=== PATIENT | male | born 1975 | race Caucasian/White ===

== ENCOUNTER 2016-10-08 21:22 | Emergency (ER) | payer SELFPAY ==
[~2016-10-08] VITALS: Ht 172.7 cm; Wt 75.0 kg
[~2016-10-08 21:22] MED LIST: DILA4TAB10 PO; METR-1 PO; OXYC5 PO; PROM25TA5 PO
[2016-10-08 21:24] VITALS: BP 118/71; PULSE 63; RESP 16; TEMP 98.3; O2SAT 99
--- NOTE | 2016-10-08 22:47 | PD ---
Physical Exam Time Seen by Provider: 22:45 Narrative 41 y/o male here with right-sided abdominal pain, nausea and vomiting over the past few days. Vital signs reviewed. Seen at triage desk. Awaiting bed placement. Data Data Last Documented VS Vital Signs Date Time Temp Pulse Resp B/P Pulse Ox O2 Delivery O2 Flow Rate FiO2 10/08/16 21:24 98.3 63 16 118/71 99 Room Air [facility] Medical Record Reviewed: Yes Supervised Visit with HUDSON: Bonifacio Salas Oct 08, 2016 22:47
[2016-10-08 23:12] LABS: AUTOMATED NEUTROPHIL # 5.7 TH/MM3 (1.8-7.7); BASOPHIL # 0.1 TH/MM3 (0-0.2); BASOPHIL % 0.6 % (0.0-2.0); EOSINOPHIL # 0.3 TH/MM3 (0-0.4); EOSINOPHIL % 3.6 % (0.0-4.0); HEMATOCRIT 41.5 % (39.0-51.0); HEMO FLAGS DIFF FINAL; LYMPH % 24.3 % (9.0-44.0); LYMPHOCYTE # 2.2 TH/MM3 (1.0-4.8); MEAN CORPUSCULAR HEMOGLOBIN 29.9 PG (27.0-34.0); MEAN CORPUSCULAR HGB CONC 33.6 % (32.0-36.0); MONO % 8.6 % (0.0-8.0); NEUT % 62.9 % (16.0-70.0); PLATELET COUNT 180 TH/MM3 (150-450); RED BLOOD COUNT 4.67 MIL/MM3 (4.50-5.90); RED CELL DISTRIBUTION WIDTH 13.1 % (11.6-17.2); WHITE BLOOD COUNT 9.1 TH/MM3 (4.0-11.0)
[2016-10-08 23:34] LABS: ALT (GPT) 16 U/L (12-78); ANION GAP 6 MEQ/L (5-15); AST (GOT) 15 U/L (15-37); BLOOD UREA NITROGEN 13 MG/DL (7-18); CHLORIDE 105 MEQ/L (98-107); GLOMERULAR FILTRATION RATE 68 ML/MIN (>89); POTASSIUM 3.7 MEQ/L (3.5-5.1); SODIUM (NA) 142 MEQ/L (136-145)
[2016-10-08 23:37] LABS: ALKALINE PHOSPHATASE 59 U/L (45-117); TOTAL BILIRUBIN ADULT 0.2 MG/DL (0.2-1.0)
[2016-10-09] MEDS ORDERED: ALPR1TAB3 PO (17:46)
[2016-10-09] MEDS ORDERED: OXYC-395 PO (17:46)
[2016-10-09] MEDS ORDERED: ZOFR4TAB3 SL (21:21)
[2016-10-09] MEDS ORDERED: DICY10 PO (21:21)
== END 2016-10-09 01:45 | disposition left against medical advice (07) ==
LOC: NED 21:22
DX: R10.9 Unspecified abdominal pain (principal); R11.2 Nausea with vomiting, unspecified; Z53.21 Procedure and treatment not carried out due to patient leaving prior to being seen by health care provider
CPT/HCPCS: 80053; 83690; 85025; 99283

== ENCOUNTER 2016-10-09 16:02 | Emergency (ER) | payer OTHER ==
[~2016-10-09] VITALS: Ht 177.8 cm; Wt 66.0 kg
[2016-10-09 16:06] VITALS: BP 144/76; PULSE 65; RESP 17; TEMP 98.5; O2SAT 100
[2016-10-09] MEDS ORDERED: OXYC-395 PO (17:46)
[2016-10-09] MEDS ORDERED: ALPR1TAB3 PO (17:46)
[2016-10-09] MEDS ORDERED: SODIUM CHLOR 0.9% 1000 ML INJ 1,000 ML IV SCH (18:16)
--- NOTE | 2016-10-09 18:16 | PD ---
HPI Chief Complaint: Abdominal Pain Time Seen by Provider: 18:03 Travel History International Travel<30 days: No Contact w/Intl Traveler<30days: No Traveled to known affect area: No History of Present Illness HPI The patient is a 41-year-old male who presents emergency department for nausea, vomiting, and abdominal pain. The patient notes a several day history of abdominal pain with nausea and vomiting. He now states that his burping and vomiting smells like feces. The patient states he has not had a bowel movement in 4-5 days. The patient was evaluated in [place] several days ago states he had a CT with IV contrast which revealed "swollen intestines ", and was subsequently discharged home and advised to follow-up with a tnt powder worker. However, the patient is unable see a tnt powder worker for 30 days. He does have a history of previous cholecystectomy with subsequent surgery to remove to "blood clots ", from the abdomen. The patient denies any fever, chills, or sweats. He has been burping with his nausea and vomiting, notes no bowel movement for the last 4-5 days, with diminished passing of gas. He does have a history of ileus. He denies any dysuria, frequency, or urgency. PFSH Past Medical History Anxiety: Yes Diminished Hearing: No Gastrointestinal Disorders: Yes (gallbladder problems) Tetanus Vaccination: > 5 Years Influenza Vaccination: No Past Surgical History Cholecystectomy: Yes Social History Alcohol Use: No Tobacco Use: Yes (1/2 pack per day) Substance Use: Yes (pots) Allergies-Medications (Allergen,Severity, Reaction): Coded Allergies: No Known Allergies (Unverified , 10/09/16) Reported Meds & Prescriptions Reported Meds & Active Scripts Active Reported Alprazolam 1 Mg Tab 1 Mg PO BID PRN Oxycodone (Oxycodone HCl) 10 Mg Tab 10 Mg PO Q6H PRN Review of Systems Except as stated in HPI: all other systems reviewed are Neg General / Constitutional: No: Fever Cardiovascular: No: Chest Pain or Discomfort Respiratory: No: Shortness of Breath Gastrointestinal: Positive: Nausea, Vomiting, Abdominal Pain, Constipation, Changes in Bowel Habits, No: Diarrhea Genitourinary: No: Dysuria Physical Exam Narrative GENERAL: Awake, alert, nontoxic-appearing 41-year-old male who appears his stated age and is in no acute respiratory distress. SKIN: Focused skin assessment warm/dry. HEAD: Atraumatic. Normocephalic. EYES: Pupils equal and round. No scleral icterus. No injection or drainage. ENT: No nasal bleeding or discharge. Slightly dry mucous membranes. NECK: Trachea midline. No JVD. CARDIOVASCULAR: Regular rate and rhythm. No murmur appreciated. Heart rate in the 70s. RESPIRATORY: No accessory muscle use. Clear to auscultation. Breath sounds equal bilaterally. GASTROINTESTINAL: Abdomen reveals tenderness and right upper quadrant and right lower quadrant. No obvious distention. Mild guarding. No rigidity noted. MUSCULOSKELETAL: No obvious deformities. No clubbing. No cyanosis. No edema. NEUROLOGICAL: Awake and alert. No obvious cranial nerve deficits. Motor grossly within normal limits. Normal speech. PSYCHIATRIC: Appropriate mood and affect; insight and judgment normal. Data Data Last Documented VS Vital Signs Date Time Temp Pulse Resp B/P Pulse Ox O2 Delivery O2 Flow Rate FiO2 10/09/16 21:12 60 18 155/43 99 Room Air 10/09/16 18:47 97.8 Orders Complete Blood Count With Diff (10/09/16 18:16) Comprehensive Metabolic Panel (10/09/16 18:16) Lipase (10/09/16 18:16) Lactic Acid (10/09/16 18:16) Urinalysis - C+S If Indicated (10/09/16 18:16) Ct Abd/Pel W Iv Contrast(Rout) (10/09/16 18:16) Iv Access Insert/Monitor (10/09/16 18:16) Ecg Monitoring (10/09/16 18:16) Oximetry (10/09/16 18:16) Morphine Inj (Morphine Inj) (10/09/16 18:30) Ondansetron Inj (Zofran Inj) (10/09/16 18:30) Sodium Chlor 0.9% 1000 Ml Inj (Ns 1000 M (10/09/16 18:16) Sodium Chloride 0.9% Flush (Ns Flush) (10/09/16 18:30) Famotidine Inj (Pepcid Inj) (10/09/16 18:30) Oral Contrast - Adult (10/09/16 18:25) Diatrizoate Liq ( Gastroanthony Liq) (10/09/16 18:44) Morphine Inj (Morphine Inj) (10/09/16 20:30) Iohexol 350 Inj (Omnipaque 350 Inj) (10/09/16 20:29) Morphine Inj (Morphine Inj) (10/09/16 21:10) Labs Laboratory Tests Test 10/09/16 10/09/16 18:30 19:00 White Blood Count 11.1 TH/MM3 Red Blood Count 4.97 MIL/MM3 Hemoglobin 14.9 GM/DL Hematocrit 45.6 % Mean Corpuscular Volume 91.6 FL Mean Corpuscular Hemoglobin 30.1 PG Mean Corpuscular Hemoglobin 32.8 % Concent Red Cell Distribution Width 13.2 % Platelet Count 175 TH/MM3 Mean Platelet Volume 7.8 FL Neutrophils (%) (Auto) 68.8 % Lymphocytes (%) (Auto) 16.9 % Monocytes (%) (Auto) 10.5 % Eosinophils (%) (Auto) 3.3 % Basophils (%) (Auto) 0.5 % Neutrophils # (Auto) 7.7 TH/MM3 Lymphocytes # (Auto) 1.9 TH/MM3 Monocytes # (Auto) 1.2 TH/MM3 Eosinophils # (Auto) 0.4 TH/MM3 Basophils # (Auto) 0.1 TH/MM3 CBC Comment DIFF FINAL Differential Comment Urine Color LIGHT-YELLOW Urine Turbidity CLEAR Urine pH 6.0 Urine Specific [place] 1.001 Urine Protein NEG mg/dL Urine Glucose (UA) NEG mg/dL Urine Ketones NEG mg/dL Urine Occult Blood NEG Urine Nitrite NEG Urine Bilirubin NEG Urine Urobilinogen LESS THAN 2.0 MG/DL Urine Leukocyte Esterase NEG Microscopic Urinalysis Comment CULT NOT INDICATED Sodium Level 140 MEQ/L Potassium Level 4.3 MEQ/L Chloride Level 107 MEQ/L Carbon Dioxide Level 28.3 MEQ/L Anion Gap 5 MEQ/L Blood Urea Nitrogen 13 MG/DL Creatinine 1.18 MG/DL Estimat Glomerular Filtration 69 ML/MIN Rate Random Glucose 71 MG/DL Calcium Level 9.1 MG/DL Total Bilirubin 0.3 MG/DL Aspartate Amino Transf 19 U/L (AST/SGOT) Alanine Aminotransferase 18 U/L (ALT/SGPT) Alkaline Phosphatase 61 U/L Total Protein 7.1 GM/DL Albumin 3.8 GM/DL Lipase 303 U/L Lactic Acid Level 1.1 mmol/L MDM Medical Decision Making Medical Screen Exam Complete: Yes Emergency Medical Condition: Yes Medical Record Reviewed: Yes Interpretation(s) Laboratory Tests Test 10/09/16 10/09/16 18:30 19:00 White Blood Count 11.1 TH/MM3 Red Blood Count 4.97 MIL/MM3 Hemoglobin 14.9 GM/DL Hematocrit 45.6 % Mean Corpuscular Volume 91.6 FL Mean Corpuscular Hemoglobin 30.1 PG Mean Corpuscular Hemoglobin 32.8 % Concent Red Cell Distribution Width 13.2 % Platelet Count 175 TH/MM3 Mean Platelet Volume 7.8 FL Neutrophils (%) (Auto) 68.8 % Lymphocytes (%) (Auto) 16.9 % Monocytes (%) (Auto) 10.5 % Eosinophils (%) (Auto) 3.3 % Basophils (%) (Auto) 0.5 % Neutrophils # (Auto) 7.7 TH/MM3 Lymphocytes # (Auto) 1.9 TH/MM3 Monocytes # (Auto) 1.2 TH/MM3 Eosinophils # (Auto) 0.4 TH/MM3 Basophils # (Auto) 0.1 TH/MM3 CBC Comment DIFF FINAL Differential Comment Urine Color LIGHT-YELLOW Urine Turbidity CLEAR Urine pH 6.0 Urine Specific [place] 1.001 Urine Protein NEG mg/dL Urine Glucose (UA) NEG mg/dL Urine Ketones NEG mg/dL Urine Occult Blood NEG Urine Nitrite NEG Urine Bilirubin NEG Urine Urobilinogen LESS THAN 2.0 MG/DL Urine Leukocyte Esterase NEG Microscopic Urinalysis Comment CULT NOT INDICATED Sodium Level 140 MEQ/L Potassium Level 4.3 MEQ/L Chloride Level 107 MEQ/L Carbon Dioxide Level 28.3 MEQ/L Anion Gap 5 MEQ/L Blood Urea Nitrogen 13 MG/DL Creatinine 1.18 MG/DL Estimat Glomerular Filtration 69 ML/MIN Rate Random Glucose 71 MG/DL Calcium Level 9.1 MG/DL Total Bilirubin 0.3 MG/DL Aspartate Amino Transf 19 U/L (AST/SGOT) Alanine Aminotransferase 18 U/L (ALT/SGPT) Alkaline Phosphatase 61 U/L Total Protein 7.1 GM/DL Albumin 3.8 GM/DL Lipase 303 U/L Lactic Acid Level 1.1 mmol/L CT is unremarkable, no acute abnormality noted. Differential Diagnosis Differential diagnosis includes partial small bowel obstruction, small bowel obstruction, ileus, surgical adhesions, pancreatitis, gastroenteritis, colitis, enteritis, diverticulitis, atypical appendicitis. Narrative Course IV was established, labs are drawn and sent, and the patient was placed on cardiac telemetry monitoring and continuous pulse oximetry monitoring. The patient was administered morphine, Zofran, and IV fluids. CT of the abdomen and pelvis with oral and IV contrast was ordered. Laboratory evaluation reveals minimally elevated white count of 11.1, otherwise unremarkable. Lactic acid is normal. LFTs and lipase are unremarkable. CT of the abdomen and pelvis with IV and oral contrast is unremarkable. The patient will be provided a copy of his CT results and lab results. He is advised to have a clear liquid diet and advance as tolerated. Bentyl and Zofran as needed. He is also advised to follow-up with his primary physician and return if symptoms worsen or progress. Diagnosis Primary Impression: Abdominal pain Qualified Code: R10.84 - Generalized abdominal pain Additional Impression: Nausea and vomiting Qualified Code: R11.2 - Non-intractable vomiting with nausea, unspecified vomiting type Patient Instructions: General Instructions, Narcotic given in the ED Additional Instructions: Please provide a patient a copy of his lab results and CT results at discharge. Work excuse for 2 days. Follow-up with your primary physician. Return if symptoms worsen or progress. Med/Other Pt SpecificInfo: Prescription(s) given Scripts Ondansetron Odt (Zofran Odt)4 Mg Tab4 Mg SL Q6HR PRN (Nausea/Vomiting) #7 TAB Ref 0 Prov:Kevin Griggs MD 10/09/16 Dicyclomine (Bentyl)10 Mg Cap10 Mg PO QID #20 CAP Ref 0 Prov:Kevin Griggs MD 10/09/16 Disposition: 01 DISCHARGE HOME Condition: Stable Kevin Griggs MD Oct 09, 2016 18:16
[2016-10-09 18:20] VITALS: RESP 18; O2SAT 99
[2016-10-09] MEDS ORDERED: SODIUM CHLORIDE 0.9% FLUSH 10 ML FLUSH IV FLUSH PRN (18:30)
[2016-10-09] MEDS ORDERED: FAMOTIDINE 20 MG/2 ML VIAL IV PUSH ONE (18:30)
[2016-10-09] MEDS ORDERED: MORPHINE SULFATE 4 MG/ML INJ IV PUSH ONE ×2 (18:30→20:30)
[2016-10-09] MEDS ORDERED: ONDANSETRON HCL 4 MG/2 ML VIAL IVP ONE (18:30)
[2016-10-09] MEDS ORDERED: DIATRIZOATE MEGLUM/DIATRIZOATE SOD 9 ML CUP ONE (18:44)
[2016-10-09 18:47] VITALS: BP 119/86; PULSE 49; RESP 18; TEMP 97.8; O2SAT 100
[2016-10-09 19:30] LABS: BLOOD, URINE NEG (NEG); COMMENT (UR) CULT NOT INDICATED; CULTURE IF INDICATED CULT NOT INDICATED; GLUCOSE,URINE NEG (NEG); KETONE, URINE NEG (NEG); NITRITE,URINE NEG (NEG); URINE COLOR LIGHT-YELLOW (YELLW/STRAW)
[2016-10-09 19:32] LABS: AUTOMATED NEUTROPHIL # 7.7 TH/MM3 (1.8-7.7); BASOPHIL # 0.1 TH/MM3 (0-0.2); BASOPHIL % 0.5 % (0.0-2.0); EOSINOPHIL # 0.4 TH/MM3 (0-0.4); EOSINOPHIL % 3.3 % (0.0-4.0); HEMATOCRIT 45.6 % (39.0-51.0); HEMO FLAGS DIFF FINAL; LYMPH % 16.9 % (9.0-44.0); LYMPHOCYTE # 1.9 TH/MM3 (1.0-4.8); MEAN CELL VOLUME 91.6 FL (80.0-100.0); MEAN CORPUSCULAR HEMOGLOBIN 30.1 PG (27.0-34.0); MEAN CORPUSCULAR HGB CONC 32.8 % (32.0-36.0); MONO % 10.5 % (0.0-8.0); NEUT % 68.8 % (16.0-70.0); PLATELET COUNT 175 TH/MM3 (150-450); RED BLOOD COUNT 4.97 MIL/MM3 (4.50-5.90); RED CELL DISTRIBUTION WIDTH 13.2 % (11.6-17.2); WHITE BLOOD COUNT 11.1 TH/MM3 (4.0-11.0)
[2016-10-09 19:46] LABS: ALKALINE PHOSPHATASE 61 U/L (45-117); ALT (GPT) 18 U/L (12-78); ANION GAP 5 MEQ/L (5-15); AST (GOT) 19 U/L (15-37); BICARBONATE 28.3 MEQ/L (21.0-32.0); BLOOD UREA NITROGEN 13 MG/DL (7-18); CHLORIDE 107 MEQ/L (98-107); GLOMERULAR FILTRATION RATE 69 ML/MIN (>89); POTASSIUM 4.3 MEQ/L (3.5-5.1); SODIUM (NA) 140 MEQ/L (136-145); TOTAL BILIRUBIN ADULT 0.3 MG/DL (0.2-1.0)
[2016-10-09] MEDS ORDERED: IOHEXOL 350 MG/ML 10 ML VIAL (for RAD DIAG) IV ONE (20:29)
[2016-10-09] MEDS ORDERED: MORPHINE SULFATE 8 MG/ML INJ ONE (21:10)
--- NOTE | 2016-10-09 21:10 | RADRPT ---
EXAM DATE/TIME: 10/09/2016 20:23 [place] COMPARISON: CT ABDOMEN & PELVIS W CONTRAST, February 06, 2012, 18:42. INDICATIONS : Right upper quadrant pain with vomiting. IV CONTRAST: 75 cc Omnipaque 350 (iohexol) IV ORAL CONTRAST: Prescribed oral contrast ingested. RADIATION DOSE: 9.96 CTDIvol (mGy) MEDICAL HISTORY : None SURGICAL HISTORY : Cholecystectomy. ENCOUNTER: Initial ACUITY: 1 day PAIN SCALE: 6/10 LOCATION: abdomen TECHNIQUE: Volumetric scanning of the abdomen and pelvis was performed. Using automated exposure control and ad justment of the mA and/or kV according to patient size, radiation dose was kept as low as reasonably achievable to obtain optimal diagnostic quality images. DICOM format image data is available electro nically for review and comparison. FINDINGS: LOWER LUNGS: The visualized lower lungs are clear. LIVER: Homogeneous density without lesion. There is no dilation of the biliary tree. Cholecystectomy. Previ ously seen biloma has resolved. SPLEEN: Normal size without lesion. PANCREAS: Within normal limits. KIDNEYS: Normal in size and shape. There is no mass, stone or hydronephrosis. ADRENAL GLANDS: Within normal limits. VASCULAR: There is no aortic aneurysm. BOWEL/MESENTERY: The stomach, small bowel, and colon demonstrate no acute abnormality. There is no free intraperitone al air or fluid. ABDOMINAL WALL: Within normal limits. RETROPERITONEUM: There is no lymphadenopathy. BLADDER: No wall thickening or mass. REPRODUCTIVE: Within normal limits. INGUINAL: There is no lymphadenopathy or hernia. MUSCULOSKELETAL: Within normal limits for patient age. CONCLUSION: No acute abnormality demonstrated. Erik Kitchen MD on October 09, 2016 at 21:07 Board Certified Radiologist. This report was verified electronically.
[2016-10-09 21:12] VITALS: BP 155/43; PULSE 60; RESP 18; O2SAT 99
[2016-10-09] MEDS ORDERED: DICY10 PO (21:21)
[2016-10-09] MEDS ORDERED: ZOFR4TAB3 SL (21:21)
== END 2016-10-09 21:54 | disposition home or self-care (01) ==
LOC: NEPD 16:02
DX: R10.84 Generalized abdominal pain (principal); R11.2 Nausea with vomiting, unspecified
CPT/HCPCS: 74177; 80053; 81001; 83605; 83690; 85025; 96374; 96375; 96376; 99285; J2270; J2405; J7030; Q9963; Q9967